=== PATIENT | male | born 1965 | race Caucasian/White ===

== ENCOUNTER 2025-03-06 11:21 | Day surgery (SDC) | payer SELFPAY ==
[2025-03-06] VITALS (19 sets, daily range): BP systolic 112–159; BP diastolic 71–99; PULSE 66–89; RESP 15–22; TEMP 36.3–37.3; O2SAT 93–97; BMI 23.6
--- NOTE | 2025-03-06 11:42 | ROE_ITS ---
Operative Note Operative Note Refer to Anesthesia Record Procedure Description: PROCEDURES PERFORMED: 1. Laparoscopic RIGHT inguinal hernia repair of primary reducible inguinal hernia Preoperative Diagnosis: Reducible primary RIGHT inguinal hernia Postoperative Diagnosis: Reducible primary indirect inguinal hernia Surgeon: Huma Cedillo Assist: Emma Anesthesia: General Anesthesiologist: Antoinette Indication: Symptomatic reducible right primary inguinal hernia. Findings: No incarcerated contents within a moderate-sized indirect defect. Posterior (PAUL) repair with 3D max MID mesh Complications: None Estimated Blood Loss: (5cc) Scant Specimens removed: None Grafts or implants: 3D max MID RIGHT large mesh Procedure in detail: Written consent was obtained from the patient who was in agreement with the risks, the benefits and the indications for the procedure. The patient was taken to the operating suite and laid supine on the operating table with his left arm tucked. IV antibiotics were not indicated. Venodynes were in place. General anesthesia was administered which was tolerated very well. Anesthesia performed a guided TAP block (see their note for details). We then prepped and draped the abdomen in sterile fashion. A timeout was p erformed. When we were all in agreement we began the procedure. Additional local anesthetic was injected at each trocar site. Within the umbilicus a small stab incision was made and a 5 mm Optiview trocar was used to enter into the abdomen under direct visualization. The liver was inspected and did not appear cirrhotic. I placed two more 5 mm ports under direct visualization and the umbilical port was upsized to a 12 mm to facilitate passing the mesh and sutures. The patient was placed in Trendelenburg and we had good visualization of the intra-abdominal cavity, pelvis and the right pelvic sidewall. There was a single indirect defect without incarcerated contents. In standard/usual fashion I created a peritoneal flap. A combination of blunt and sharp dissection was performed using the LigaSure. After getting the hernia sac and everything else reduced, I developed the space all the way medial to beyond the pubic tubercle midline. Yg's ligament was clearly exposed. There was no femoral defect. Hemostasis was excellent. A 3D max MID mesh was introduced in usual fashion and laid perfectly within the space I had created. The indirect, direct as well as the femoral spaces(MPO) were all completely covered with significant and adequate overlay. I sutured a portion of the mesh to Yg's ligament and in the upper outer quadrant to the fascia using Vicryl. This is done so the mesh would not rotate or migrate. Next I closed the peritoneal flap with the V-loc. Hemostasis was excellent. I removed the needles from the abdomen. I closed the 12 mm defect with Vicryl through the fascia. We closed the skin with Monocryl and put Dermabond on top. The testicles were present in the scrotum bilateral after the procedure. The sponge, instrument and sharps count was correct x3 at the end of the procedure. The patient tolerated the procedure well and was taken to the PACU in hemodynamically stable condition. Date of Procedure: 03/06/25
--- NOTE | 2025-03-06 11:44 | W.PM.DSUDISC ---
Date of service: 03/06/25 Discharge Plan Disposition Patient Disposition: Home Condition: Good Discharge Details Attending Provider: Denis Cedillo Primary Care Provider: None,None Home Meds and New Rx's Prescriptions: No Action naproxen 250 mg tablet 250 mg PO DAILY Patient Comments: pt. reports taking two Discharge Instructions Additional Instructions: INSTRUCTIONS: Incisions: Keep clean and dry but they do not need to be covered. It is okay to shower but no tub bathing for 1 week. You can peel the glue off after 1 week. Activity: Light duty activity as tolerated for the next 6 to 8 weeks with no heavy lifting pushing or pulling. Diet: Clear liquids today, resume a regular diet as tolerated tomorrow morning. Medications: Resume any/all of your usual/regular home medications. Follow-up: If you are having any issues or concerns call the surgery office immediately. If you want to have a routine follow-up you can call and schedule one. If everything is otherwise going well, you do not need to follow-up. Pain control: Take Tylenol, 1000 mg, every 6 hours on a schedule for the next 3 days. You can use ibuprofen in addition to Tylenol if needed. Ice can be used as needed. Overall: Symptoms should not be worsening. If you have any difficulty breathing or you have return of symptoms of brought you to the hospital or your pain is otherwise worsening each day and you should call the doctor's office or come into the hospital to be checked out. Discharge Orders Discharge Orders: Discharge Order (Routine); Ordered 03/06/25 Ordered By: Denis Cedillo
[2025-03-06] MEDS: Heparin 5,000 UNITS/ML VIAL 5000 UNITS SC (11:55)
[2025-03-06] MEDS: Lactated Ringers 1,000 ML 80 ML IV (11:57)
--- NOTE | 2025-03-06 12:10 | W.ANESPRE ---
General Info Date of Service Date Performed: 03/06/25 Height: 5 ft 11 in Weight: 76.8 kg Body Mass Index (BMI): 23.6 Surgical Procedure: Operation Date: 03/06/25 11:40 Proposed Procedure Side Surgeon p Hernia Inguinal Laparoscopic w/Mesh Right Denis Cedillo MD Actual Procedure Side Surgeon p Hernia Inguinal Laparoscopic w/Mesh Right Denis Cedillo MD Pre-Op Diagnosis Post-Op Diagnosis Right inguinal hernia Meds Allergies and Home Medications Allergies Allergy/AdvReac Type Severity Reaction Status Date / Time No Known Allergies Allergy Verified 03/06/25 11:49 Home Medication ?Medication ?Instructions ?Recorded naproxen 250 mg tablet 250 mg PO DAILY 03/06/25 Current Visit Medications: Current Medications Generic Name Dose Route Start Last Admin Trade Name Freq PRN Reason Stop Dose Admin Heparin Sodium (Porcine) 5,000 units 03/06/25 06:00 03/06/25 11:55 Heparin 5,000 Units/Ml Vial SC 03/06/25 23:59 5,000 units NOW DORINA Administration Ringer's Solution 1,000 mls @ 80 mls/hr 03/06/25 06:00 03/06/25 11:57 IV 03/30/25 23:59 80 mls/hr INFUSION DORINA Administration IV Miscellaneous Supplies 1 each 03/06/25 06:00 Iv Access IV 03/30/25 23:59 DIRECTED DORINA Sodium Chloride 0 ml 03/06/25 06:00 Normal Saline Flush 10 Ml Syr IV 03/30/25 23:59 PRN PRN Sodium Chloride 0 ml 03/06/25 06:00 Normal Saline 10 Ml Vial IJ 03/30/25 23:59 DIRECTED PRN Sterile Water 0 ml 03/06/25 06:00 Water,Injection,Sterile 10 Ml Vial IJ 03/30/25 23:59 DIRECTED PRN PFSH Active Problems Active Problems: Problem Status Onset Code Right inguinal hernia Acute K40.90 Right groin mass Acute R19.09 Surgical History Surgical History (Updated 03/06/25 @ 11:52 by Roxane Rick) No pertinent past surgical history Tobacco Smoking/Tobacco Use Status: Current every day Tobacco Type: cigarettes Smoking cigarettes per day: 15 Passive smoking exposure: Yes Counseling given: patient declined Alcohol Alcohol Intake: current Alcohol intake frequency: a few times a week Alcohol type: beer Substance Use Substance use: Occasionally Substance use type: marijuana Details: alcohol: 3 drinks. Marijuana: smoking, joint 03/02/25 Vital Signs and Lab Results Vital Signs Most Recent Vital Signs in EMR: Most Recent Vital Signs Temp Pulse Resp BP Pulse Ox 37.3 C 89 20 159/99 H 97 03/06/25 11:48 03/06/25 11:48 03/06/25 11:48 03/06/25 11:48 03/06/25 11:48 Lab Results Blood Type / Crossmatch: No Data to Display Complete Blood Count: No Data to Display Complete Metabolic Panel: No Data to Display Liver Function Panel: No Data to Display Coagulation Panel: No Data to Display Cardiac Panel: No Data to Display Arterial Blood Gas: No Data to Display Venous Blood Gas: No Data to Display Pancreas Panel: No Data to Display Thyroid Panel: No Data to Display Infectious Disease: No Data to Display Blood Cultures: No Data to Display Toxicology Panel: No Data to Display Anesthesia Assessment and Plan Anesthesia History Personal History: No History of General Anesthesia Family History: No Family History of Anesthesia Complications Exercise Tolerance Exercise Tolerance: Metabolic Equivalents>4 Pertinent Negatives Pertinent Negatives: No Symptoms of GERD, No Major Cardiovascular Symptoms or Complaints, No Major Pulmonary Symptoms or Complaints and No History of CVA/TIA Cardiac & Pulmonary Exam Cardiac Exam: Normal S1/S2 Heart Sounds Pulmonary Exam: Clear Bilateral Breath Sounds Implantable Cardiac Device Does patient have a Pacemaker or an ICD?: No Airway Exam Known Difficult Airway: No Mallampati Class: 1 Mouth Opening: Normal (> 3cm) Thyromental Distance: Greater than 3 cm Neck Range of Motion: Full ROM Neck Circumference: Normal Teeth Condition: Removable Dentures/Plates Upper and Other (no lower teeth ) ASA Classification ASA Score: ASA 2 Emergency Case?: No NPO Status NPO Status: NPO Clears >2 hours, Solids >8 hours Anesthesia Plan Resuscitation Status: Full Code Anesthesia Technique: General Anesthesia Airway Planned: Endotracheal Tube Pain Management: Surgeon and patient request nerve block (Right TAP block) Monitors Used: Standard Monitors
--- NOTE | 2025-03-06 13:04 | W.ANESNERVE ---
Nerve Block Single Injection Procedure Date and Time Date Performed: 03/06/25 Procedure Start: 12:42 Location Where Procedure Performed Procedure Location: Operating Room Procedure Stop: 12:49 Reason Performed: Postoperative Analgesia Requesting Provider: Denis Cedillo Timeout Performed Timeout Performed: Yes Monitoring Used ECG, Blood Pressure and SpO2 Sterility Sterility: Hand Hygiene, Surgical Mask, Sterile Gloves, Eye Protection and Chlorhexidine Sedation Given During Procedure Sedation Given (Indicate Dose Given): No Sedation given Patient Mental Status Patient Mental Status: Performed under general anesthesia Nerve Block 1st Nerve Block: Laterality: Right Block Type: TAP Unilateral Ultrasound Image Saved?: Yes Needle / Catheter Used: 100mm SonoPlex II Local Anesthetic Bolus (Indicate Dose Given): Injected in 3-5ml increments after negative blood aspiration, Bupivacaine 0.25% Dose:: 20 ml and Exparel Dose:: 10 ml Additives (Indicate Dose Given): None Ultrasound: Sterile probe cover and gel used Nerve Stimulator: Not Used Paresthesia: None Procedure Tolerated: No Complications Procedure Outcome: Successful Performed By: Aj Arroyo Supervised By: Corina Marcus
[2025-03-06] MEDS: Bupivacaine 0.25% Pres-Free 30 ML VIAL (13:46)
[2025-03-06] MEDS: fentaNYL 100 MCG/2 ML VIAL IVP (14:23)
--- NOTE | 2025-03-06 14:50 | W.ANESPOSTOP ---
Postoperative Evaluation Date, Time and Location Date Performed: 03/06/25 Time Performed: 14:33 Patient Location: PACU Vital Signs Most Recent Imported Vital Signs: Most Recent Vital Signs Temp Pulse Resp BP Pulse Ox 36.3 C L 67 15 120/74 96 03/06/25 14:17 03/06/25 14:31 03/06/25 14:31 03/06/25 14:30 03/06/25 14:31 Pain Score Most Recent Pain Score: Most Recent Pain Score Pain Level 3 03/06/25 14:30 Assessment Mental Status: Awake (Alert & Oriented to Patient Baseline) Airway and Respiratory Function: Patent airway with normal (patient baseline) respiratory exam Cardiovascular Function: Hemodynamically Stable Hydration Status: Adequately Hydrated Nausea & Vomiting: No Nausea or Vomiting Pain: Pain is tolerable per patient Peripheral Nerve Block: Regional nerve block not resolved at time of post operative discharge
== END 2025-03-06 15:30 | disposition home or self-care (01) ==
PROVIDERS: Visit Provider Student in an Organized Health Care Education/Training Program
PROC: (CPT 49650; principal; 2025-03-06 11:30)
DX: K40.90 Unilateral inguinal hernia, without obstruction or gangrene, not specified as recurrent (principal)
CPT/HCPCS: 49650; 64486; C1781; J0131; J0665; J0666; J1100; J1644; J1805; J1885; J2003; J2405; J2704; J3010